=== PATIENT | male | born 1955 | race Two or more races ===

== ENCOUNTER 2019-04-01 12:00 | Inpatient (IN) | payer OTHER, MEDICAID ==
[2019-04-01 12:16] LABS: ADD MAN DIFF? NO
[2019-04-01 12:18] LABS: BASOPHILS % 0.1 % (0.0-2.0); EOSINOPHILS # 0.1 10^3/ul (0.0-0.5); EOSINOPHILS % 0.7 % (0.0-7.0); HEMATOCRIT 39.8 % (42.0-52.0); HEMOGLOBIN 13.2 g/dl (14.0-18.0); LYMPHOCYTES # 1.1 10^3/ul (0.8-2.9); LYMPHOCYTES % 11.7 % (15.0-51.0); MEAN CORPUSCULAR HEMOGLOBIN 31.1 pg (29.0-33.0); MEAN CORPUSCULAR HGB CONC 33.2 g/dl (32.0-37.0); MEAN CORPUSCULAR VOLUME 93.9 fl (82.0-101.0); MONOCYTE # 0.6 10^3/ul (0.3-0.9); MONOCYTES % 6.4 % (0.0-11.0); NEUTROPHIL # 7.9 10^3/ul (1.6-7.5); NEUTROPHILS % 80.8 % (39.0-77.0); PLATELET COUNT 175 10^3/UL (140-415); RED BLOOD COUNT 4.24 10^6/ul (4.70-6.10); RED CELL DISTRIBUTION WIDTH 12.9 % (11.5-14.5)
[2019-04-01 12:18] LABS: WHITE BLOOD COUNT 9.7 10^3/ul (4.8-10.8)
[2019-04-01] MEDS ORDERED: NITROGLYCERIN (IC) 100 MCG/ML INJ (12:22)
[2019-04-01] MEDS ORDERED: MIDAZOLAM 1 MG/ML 2 ML INJ (12:22)
[2019-04-01] MEDS ORDERED: IODIXANOL LOCM 100 ML BTL (12:22)
[2019-04-01] MEDS ORDERED: FENTAnyl 50 MCG/ML VIAL (12:22)
[2019-04-01] MEDS ORDERED: HEPARIN 1000 UNITS/ML 10 ML INJ (12:22)
[2019-04-01] MEDS ORDERED: LIDOCAINE 1% (MDV) 20 ML INJ (12:22)
[2019-04-01] MEDS ORDERED: VERAPAMIL 5 MG INJ (12:22)
[2019-04-01 12:34] LABS: ANION GAP 8 (5-13); BLOOD UREA NITROGEN 19 mg/dl (7-20); CALCIUM 8.8 mg/dl (8.4-10.2); CARBON DIOXIDE 24 mmol/L (21-31); CHLORIDE 110 mmol/L (97-110); CREATININE 1.17 mg/dl (0.61-1.24); Estimated GFR > 60 mL/min (>60); GLUCOSE 160 mg/dl (70-220); SODIUM 142 mmol/L (135-144)
[2019-04-01] MEDS: morphine 4 MG/ML VIAL IV (12:36)
[2019-04-01] MEDS: NITROGLYCERIN (SL) 0.4 MG TAB SL (12:36)
[2019-04-01] MEDS: ONDANSETRON 4 MG INJ IV (12:36)
[2019-04-01] MEDS: ASPIRIN 325 MG TAB PO (12:36)
[2019-04-01 12:37] LABS: INR 0.93; PROTIME 12.6 Sec (11.9-14.9)
[2019-04-01 12:41] LABS: PARTIAL THROMBOPLASTIN TIME 24.4 Sec (23.0-35.0)
[2019-04-01] MEDS ORDERED: CLOPIDOGREL 300 MG TAB (13:08)
[2019-04-01] MEDS: BIVALIRUDIN 250MG /NS 50 ML 50 ML IVPB (13:17)
[2019-04-01] MEDS ORDERED: morphine 2 MG INJ IV (13:30)
[2019-04-01] MEDS ORDERED: ONDANSETRON 4 MG INJ IV (13:30)
[2019-04-01] MEDS ORDERED: AL HYDROX/MG HYDROX/SIMETH 30 ML CUP PO (13:30)
[2019-04-01] MEDS ORDERED: ACETAMINOPHEN 325 MG TAB PO (13:30)
[2019-04-01] MEDS ORDERED: OXYCODONE/ACETAMINOPHEN (5/325) TAB PO (13:30)
[2019-04-01] MEDS ORDERED: ZOLPIDEM 5 MG TAB PO (13:30)
[2019-04-01 15:00] LABS: HEMOGLOBIN A1C 5.6 % (0-5.9)
[2019-04-01] MEDS: SOD CHLORIDE 0.9% 1,000 ML IV (15:15)
[2019-04-01 19:35] LABS: ANION GAP 4 (5-13); BLOOD UREA NITROGEN 17 mg/dl (7-20); CALCIUM 8.6 mg/dl (8.4-10.2); CARBON DIOXIDE 26 mmol/L (21-31); CHLORIDE 109 mmol/L (97-110); CREATININE 1.12 mg/dl (0.61-1.24); Estimated GFR > 60 mL/min (>60); GLUCOSE 111 mg/dl (70-220); PHOSPHORUS 4.3 mg/dl (2.5-4.9); POTASSIUM 4.4 mmol/L (3.5-5.1); SODIUM 139 mmol/L (135-144)
[2019-04-01 20:28] LABS: CK INDEX 2.8; CREATINE KINASE 2794 IU/L (23-200)
[2019-04-01] MEDS: ATORVASTATIN 40 MG TAB PO (21:44)
[2019-04-01] MEDS: TERAZOSIN 2 MG CAP PO (21:44)
[2019-04-02 00:04] LABS: CREATINE KINASE 1431 IU/L (23-200)
[2019-04-02 00:16] LABS: CK INDEX 4.2
[2019-04-02 05:25] LABS: ADD MAN DIFF? NO
[2019-04-02 05:32] LABS: WHITE BLOOD COUNT 10.1 10^3/ul (4.8-10.8)
[2019-04-02 05:32] LABS: BASOPHILS % 0.2 % (0.0-2.0); EOSINOPHILS # 0.1 10^3/ul (0.0-0.5); EOSINOPHILS % 0.7 % (0.0-7.0); HEMOGLOBIN 12.7 g/dl (14.0-18.0); LYMPHOCYTES # 1.4 10^3/ul (0.8-2.9); LYMPHOCYTES % 13.4 % (15.0-51.0); MEAN CORPUSCULAR HEMOGLOBIN 31.1 pg (29.0-33.0); MEAN CORPUSCULAR HGB CONC 33.4 g/dl (32.0-37.0); MEAN CORPUSCULAR VOLUME 92.9 fl (82.0-101.0); MEAN PLATELET VOLUME 12.4 fl (7.4-10.4); MONOCYTES % 9.5 % (0.0-11.0); NEUTROPHIL # 7.6 10^3/ul (1.6-7.5); NEUTROPHILS % 75.9 % (39.0-77.0); PLATELET COUNT 167 10^3/UL (140-415); RED BLOOD COUNT 4.09 10^6/ul (4.70-6.10); RED CELL DISTRIBUTION WIDTH 13.2 % (11.5-14.5)
[2019-04-02 05:47] LABS: CHOL/HDL RATIO 4.5 RATIO; CHOLESTEROL 183 mg/dl (100-200); HDL CHOLESTEROL 40 mg/dl (30-78); LDL CHOLESTEROL,CALCULATED 117 mg/dl; MAGNESIUM 1.8 mg/dl (1.7-2.5); TRIGLYCERIDES 132 mg/dl (0-149)
[2019-04-02 05:47] LABS: PHOSPHORUS 3.4 mg/dl (2.5-4.9)
[2019-04-02 06:03] LABS: ALANINE AMINOTRANSFERASE 49 IU/L (13-69); ALBUMIN 3.5 g/dl (3.3-4.9); ALBUMIN/GLOBULIN RATIO 0.97; ALKALINE PHOSPHATASE 67 IU/L (42-121); ANION GAP 6 (5-13); ASPARTATE AMINO TRANSFERASE 174 IU/L (15-46); BILIRUBIN,INDIRECT 0.7 mg/dl (0-1.1); BILIRUBIN,TOTAL 0.7 mg/dl (0.2-1.3); BLOOD UREA NITROGEN 15 mg/dl (7-20); CALCIUM 8.4 mg/dl (8.4-10.2); CARBON DIOXIDE 23 mmol/L (21-31); CHLORIDE 112 mmol/L (97-110); CREATININE 1.08 mg/dl (0.61-1.24); Estimated GFR > 60 mL/min (>60); GLUCOSE 104 mg/dl (70-220); SODIUM 141 mmol/L (135-144); TOTAL PROTEIN 7.1 g/dl (6.1-8.1)
[2019-04-02 06:16] LABS: CREATINE KINASE 1074 IU/L (23-200)
[2019-04-02] MEDS: CLOPIDOGREL 75 MG TAB PO (08:41)
[2019-04-02] MEDS: ASPIRIN (EC) 81 MG TAB PO (08:41)
[2019-04-02] MEDS: METOPROLOL 25 MG TAB PO (22:39)
[2019-04-02] MEDS: TERAZOSIN 2 MG CAP PO (22:39)
[2019-04-02] MEDS: ATORVASTATIN 40 MG TAB PO (22:39)
[2019-04-03 06:23] LABS: ADD MAN DIFF? NO
[2019-04-03 06:30] LABS: BASOPHILS % 0.2 % (0.0-2.0); EOSINOPHILS # 0.1 10^3/ul (0.0-0.5); EOSINOPHILS % 1.3 % (0.0-7.0); HEMATOCRIT 39.4 % (42.0-52.0); HEMOGLOBIN 13.2 g/dl (14.0-18.0); LYMPHOCYTES # 1.8 10^3/ul (0.8-2.9); LYMPHOCYTES % 21.3 % (15.0-51.0); MEAN CORPUSCULAR HEMOGLOBIN 31.3 pg (29.0-33.0); MEAN CORPUSCULAR HGB CONC 33.5 g/dl (32.0-37.0); MEAN CORPUSCULAR VOLUME 93.4 fl (82.0-101.0); MEAN PLATELET VOLUME 12.3 fl (7.4-10.4); MONOCYTE # 1.1 10^3/ul (0.3-0.9); MONOCYTES % 13.1 % (0.0-11.0); NEUTROPHIL # 5.5 10^3/ul (1.6-7.5); NEUTROPHILS % 63.7 % (39.0-77.0); PLATELET COUNT 161 10^3/UL (140-415); RED BLOOD COUNT 4.22 10^6/ul (4.70-6.10); RED CELL DISTRIBUTION WIDTH 13.3 % (11.5-14.5)
[2019-04-03 06:30] LABS: WHITE BLOOD COUNT 8.6 10^3/ul (4.8-10.8)
[2019-04-03 07:09] LABS: PHOSPHORUS 3.3 mg/dl (2.5-4.9)
[2019-04-03 07:09] LABS: MAGNESIUM 1.9 mg/dl (1.7-2.5)
[2019-04-03 07:11] LABS: ANION GAP 6 (5-13); BLOOD UREA NITROGEN 15 mg/dl (7-20); CALCIUM 8.5 mg/dl (8.4-10.2); CARBON DIOXIDE 25 mmol/L (21-31); CHLORIDE 110 mmol/L (97-110); CREATININE 1.21 mg/dl (0.61-1.24); Estimated GFR > 60 mL/min (>60); GLUCOSE 98 mg/dl (70-220); POTASSIUM 4.4 mmol/L (3.5-5.1); SODIUM 141 mmol/L (135-144)
[2019-04-03] MEDS: CLOPIDOGREL 75 MG TAB PO (08:43)
[2019-04-03] MEDS: ASPIRIN 81 MG TAB PO (08:43)
[2019-04-03] MEDS: METOPROLOL 25 MG TAB PO (08:43)
[2019-04-03] MEDS: BENAZEPRIL 5 MG TAB PO (08:44)
== END 2019-04-03 13:40 | disposition home or self-care (01) | DRG 247 ==
LOC: E/R 12:00 → CCL 12:19 → SDS 12:19 → CCL 12:35 → REC 12:36 → ICU 13:41 → TEL 04-02 19:37
PROVIDERS: Internal Medicine
PROC: 027034Z Dilation of Coronary Artery, One Artery with Drug-eluting Intraluminal Device, Percutaneous Approach (ICD-10-PCS; principal; 2019-04-01 11:30)
PROC: 4A023N7 Measurement of Cardiac Sampling and Pressure, Left Heart, Percutaneous Approach (ICD-10-PCS; 2019-04-01 11:30)
PROC: B211YZZ Fluoroscopy of Multiple Coronary Arteries using Other Contrast (ICD-10-PCS; 2019-04-01 11:30)
DX: I21.09 ST elevation (STEMI) myocardial infarction involving other coronary artery of anterior wall (principal); I25.10 Atherosclerotic heart disease of native coronary artery without angina pectoris; E78.5 Hyperlipidemia, unspecified; N40.0 Benign prostatic hyperplasia without lower urinary tract symptoms
CPT/HCPCS: 71045; 80048; 80053; 80061; 82550; 82553; 83036; 83735; 84100; 84484; 85025; 85610; 85730; 87081; 92928; 93005; 93306; 93458; 96374; 96375; 99285-25

== ENCOUNTER 2019-06-06 12:12 | Emergency (ER) | payer OTHER | END 2019-06-06 14:43 | disposition home or self-care (01) | LOC: FTE 14:43 | DX: R22.0 Localized swelling, mass and lump, head (principal); I10 Essential (primary) hypertension; I25.2 Old myocardial infarction; Z79.82 Long term (current) use of aspirin | CPT/HCPCS: 99282; Z7502 ==